=== PATIENT | female | born 1995 | race American Indian/Alaskan Native ===

== ENCOUNTER 2017-03-18 16:29 | Emergency (ER) | payer SELFPAY ==
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
[2017-03-18 20:25] VITALS: BP 111/68
== END 2017-03-18 20:20 | disposition home or self-care (01) ==
LOC: ED 16:29
DX: M54.2 Cervicalgia (principal); V89.2XXA Person injured in unspecified motor-vehicle accident, traffic, initial encounter; Y93.89 Activity, other specified; Y99.8 Other external cause status; Y92.410 Unspecified street and highway as the place of occurrence of the external cause
CPT/HCPCS: 99281; 99282

== ENCOUNTER 2017-05-31 17:14 | Emergency (ER) | payer BC ==
[2017-05-31 17:46] VITALS: BP 119/68
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
== END 2017-05-31 18:55 | disposition home or self-care (01) ==
LOC: EDBD → ED 17:14
DX: K29.20 Alcoholic gastritis without bleeding (principal)
CPT/HCPCS: 99282